=== PATIENT | female | born 1995 | race African-American/Black ===

== ENCOUNTER 2020-03-05 16:59 | Day surgery (SDC) ==
[2020-03-05 17:35] VITALS: BP 112/71; TEMP 98.5; BMI 36.7
[2020-03-05] MEDS ORDERED: hydrALAZINE 20 MG/ML VIAL SLOW IVP PRN (17:58)
--- NOTE | 2020-03-05 18:02 | PDOC.FPROB ---
FMR OB H&P: HPI - History of Present Illness Chief Complaint: pink discharge Indentification: 24yo @ 23.3 wk History of Present Illness: 24yo @ 23.3 wk presents for suprapubic pain and pink spotting with wiping today. Patient states was at usual state of health until earlier today when she began to experience intermittent suprapubic sharp pain. Then after voiding had 2 episodes of pink spotting on the toilet tissue. Associated RLQ pain. No fever/chills, n/v, TORRES, vision changes, CP, SOB, recent illness/abx use. No recent intercourse or vaginal exam. No history of STDs. Also experiencing Right sciatic pain, right lower back pain that has been ongoing for 3+ weeks. No dysuria or known hematuria. Endorses good movement. Primary Care Physician: PARUL Villeda in [place] FMR OB H&P: Current - Care : 1 Para: 0 Gestational age: 23.3 Due date: 06/30/19 FMR OB H&P: History - Past Medical History PMH: Depression - not on medications - OB History OB History: Primigravida, no complications this - [employer] History [employer] History: No history of STDs. - Surgical History Sx History: None - Social History Social History: . Denies tob, EtOH, illicits. - Family History Family History: Denies. FMR OB H&P: Medications - Current Home Medications: Medication Instructions Recorded Confirmed Type Vitamin 1 tablet PO DAILY 03/05/20 03/05/20 History Allergies/Adverse Reactions: Allergies Allergy/AdvReac Type Severity Reaction Status Date / Time ceftriaxone [From Rocephin] Allergy Verified 03/05/20 17:32 Penicillins Allergy Verified 03/05/20 17:32 FMR OB H&P: ROS - Review of Systems General: denies: fever/chills, night sweats, fatigue, recent trauma Eyes: denies: vision changes, scotomas, floaters ENT: denies: nasal congestion, rhinorrhea, sore throat Cardiovascular: denies: chest pain, palpitation, edema Respiratory: denies: cough, congestion, shortness of breath Gastrointestinal: reports: abdominal pain. denies: cramping, nausea, vomiting, diarrhea, constipation Genitourinary (Female): reports: polyuria, hesitancy, vaginal bleeding. denies: incontinence, dysuria, hematuria, vaginal discharge, vaginal pain, contractions Musculoskeletal: reports: pain Neurologic: reports: numbness (R sciatica) Integumentary: denies: rash Psychological: reports: depression. denies: anxiety FMR OB H&P: Vital Signs - Maternal Vital signs: Vital Signs - First Documented Temp Pulse Resp BP 98.5 F 93 18 112/71 03/05/20 17:31 03/05/20 17:31 03/05/20 17:31 03/05/20 17:31 - Heart Tones Baseline: 145 (Doppler) FMR OB H&P: Physical Exam - Physical Exam General: NAD, awake, alert and oriented HEENT: normocephalic and atraumatic, PERRLA, EOMI, MMM, conjunctiva clear, grossly normal hearing, oropharynx clear Neck: supple, trachea midline Chest: non-tender to palpation Heart: RRR, normal S1/S2, no murmurs/rubs/gallops, no edema General: CTAB, no respiratory distress, good air movement, no rales/rhonchi, no wheezing Abdomen: soft, gravid, bowel sound present, other (Suprapubic TTP. RLQ TTP. No CVA tenderness. RUQ pain.) Musculoskeletal: FROM in all four extremities, other (R lower back pain on palpation) Neurological: no focal deficit Skin: no rash Psychiatric: intact recent and remote memory, good judgement and insight, normal mood and affect - Pelvic Exam Vulva: normal hair distribution, no masses, no lesions, no blood Deviation from normal: No bleeding or old blood Cervix: no masses, no lesions, no blood SVE: Closed/Thick/high FMR OB H&P: A/P - Problem List (1) Second trimester Status: Acute Code(s): Z34.92 - ENCNTR FOR SUPRVSN OF NORMAL PREG, UNSP, SECOND TRIMESTER (2) Suprapubic pain Status: Acute Code(s): R10.2 - PELVIC AND PERINEAL PAIN Disposition: 24yo @ 23.3 wk presents for suprapubic abd pain and pink spotting. #2nd Trimester - pink spotting and urinary sxs - 23.3wk - FHT 145 - No Ctx, LOF, change in vaginal discharge, or recent intercourse or known vaginal trauma - Endorses good movement. - UA - clean - Spec exam - Closed cervix, no bleeding or discharge from OS, no vaginal bleeding or blood in vaginal fault. Thick, white discharge. - VP3 negative - SVE - Closed/thick/high PCP: [facility] - Dr. Villeda in [place] Dispo: No evidence of UTI or other infection, VP3 negative. Vitals stable. Spec exam normal with closed cervix and no evidence of bleeding. No evidence of labor. Likely microabrasion from wiping as well as MSk - associated pain. Conservative treatment such as Tylenol, heating pads, positional changes, and stretches discussed. Discharge home with return precautions and follow up with primary OB. Patient and voiced understanding and agreement, all questions answered. Discussion: Date/Time: 03/05/201758 This H&P was discussed with Dr. Ortega who agrees with the above documentation and plan. Addendum - Attending - Attending Attestation Date/Time: 03/07/20 52 I personally evaluated the patient and discussed the management with Dr. Johnson I agree with the History, Examination, Assessment and Plan documented above with any addition or exceptions noted below. Pt reports isolated spotting with wiping, cramping. She came for evaluation. No visible evidence of source of her bleeding. Cervix unlabored and closed, ua neg for evidence of uti. neg vp3. Fetus with Cat 1 tracing. Pt given reassurance. To Follow up with primary ob as scheduled in the next few days.
[2020-03-05 18:32] LABS: Bacteria/HPF None Seen HPF (None Seen); Bilirubin Negative (Negative); Blood, Urine Negative (Negative); Clarity Clear (Clear); Glucose, Urine (Dipstick) Normal (Negative); Ketone, Urine Negative (Negative); Leukocyte 75 Leu/uL (Negative); Nitrite Negative (Negative); Protein, Urine (Dipstick) Negative (Neg-Trace); RBC/HPF None Seen HPF (0-3); Specific Gravity, Urine 1.016 (1.002-1.036); Squamous Epithelial 0-3 HPF (0-3); Urobilinogen Normal mg/dL (Less than 2); WBC/HPF 0-3 HPF (0-3); pH, Urine 6.5 (5.0-9.0)
[2020-03-05] MEDS ORDERED: FLU VACC QS2020-21(6MOS UP)/PF 60 MCG/0.5 ML SYRINGE IM ONE (20:00)
== END 2020-03-05 19:30 | disposition home or self-care (01) ==
LOC: L&D/OP 16:59
PROVIDERS: ATTEND Obstetrics & Gynecology
DX: O99.891 Other specified diseases and conditions complicating pregnancy (principal); R10.31 Right lower quadrant pain; R10.2 Pelvic and perineal pain; M54.5 Low back pain; O26.852 Spotting complicating pregnancy, second trimester; O99.342 Other mental disorders complicating pregnancy, second trimester; F32.9 Major depressive disorder, single episode, unspecified; Z3A.23 23 weeks gestation of pregnancy; Z88.0 Allergy status to penicillin; Z88.1 Allergy status to other antibiotic agents
CPT/HCPCS: 81001; 87480; 87510; 87660